=== PATIENT | female | born 1990 | race Caucasian/White ===

== ENCOUNTER → 2024-10-08 12:43 | Outpatient (BNVA) | payer OTHER, SELFPAY | PROVIDERS: Visit Provider Physician Assistant Medical | DX: S00.83XA Contusion of other part of head, initial encounter (principal); W22.8XXA Striking against or struck by other objects, initial encounter; G43.909 Migraine, unspecified, not intractable, without status migrainosus; M54.2 Cervicalgia | CPT/HCPCS: 99203 ==

== ENCOUNTER → 2024-10-10 09:40 | Outpatient (BNVA) | payer OTHER, SELFPAY | PROVIDERS: Visit Provider Physician Assistant | DX: S06.0X0A Concussion without loss of consciousness, initial encounter (principal); W22.8XXA Striking against or struck by other objects, initial encounter | CPT/HCPCS: 99213 ==

== ENCOUNTER → 2024-10-18 15:36 | Outpatient (BNVA) | payer OTHER, SELFPAY | PROVIDERS: Visit Provider Physician Assistant | DX: S00.83XD Contusion of other part of head, subsequent encounter (principal); W22.8XXD Striking against or struck by other objects, subsequent encounter; R51.9 Headache, unspecified; Z02.79 Encounter for issue of other medical certificate | CPT/HCPCS: 99213 ==